=== PATIENT | male | born 1995 | race Caucasian/White ===

== ENCOUNTER 2016-11-03 14:07 | Emergency (ER) | payer OTHER ==
[2016-11-03 14:18] VITALS: RESP 18
--- NOTE | 2016-11-03 14:46 | ED ---
General Adult HPI - General Chief complaint: Upper Respiratory Infection Stated complaint: Sore throat Time Seen by Provider: 11/03/16 14:22 Source: patient, RN notes reviewed Mode of arrival: ambulatory Limitations: no limitations - History of Present Illness Initial comments: This is a 21-year-old male presents with productive cough, fever, congestion and headache plus a sore throat 4 days. Patient states it all started with a fever for 4 days and he developed congestion, headache and sore throat. Patient has been taking Tylenol and Motrin for the fever. Patient states he did not have a fever today. Patient states he has vomited a couple times but not today. Patient did not get a flu shot. Patient admits to smoking marijuana but denies tobacco, alcohol and other drug use. Patient denies any recent shortness breath, chest pain, abdominal pain, nausea/diarrhea, back pain , numbness, tingling, hematuria, or visual changes, or any other complaints. - Related Data Allergies Allergy/AdvReac Type Severity Reaction Status Date / Time No Known Allergies Allergy Verified 11/03/16 14:14 Review of Systems ROS Statement: Those systems with pertinent positive or pertinent negative responses have been documented in the HPI. ROS Other: All systems not noted in ROS Statement are negative. Past Medical History Past Medical History: No Reported History History of Any Multi-Drug Resistant Organisms: None Reported Past Surgical History: Appendectomy Past Psychological History: No Psychological Hx Reported Smoking Status: Current every day smoker Past Alcohol Use History: None Reported Past Drug Use History: Marijuana General Exam Limitations: no limitations Course Vital Signs 11/03/16 14:14 Temperature 98.1 F Pulse Rate 79 Respiratory 18 Rate Blood Pressure 156/79 O2 Sat by Pulse 96 Oximetry Medical Decision Making - Medical Decision Making This is a 21-year-old female presents with flulike symptoms 4 days. On physical exam patient from the . Lungs are clear to auscultation bilaterally. Influenza and strep rechecked. Strep is negative and patient is positive for influenza B. Chest x-ray is done and reviewed showing: No acute cardiopulmonary process. Report read by Dr. Davis. I discussed the results with patient. I discussed that patient is out of the window for Tamiflu treatment. I discussed continuation of Tylenol and Motrin for fever. I discussed symptomatic treatment. I discussed return parameters. I discussed with the patient should follow-up with his primary care provider in one to 2 days or return to the [facility] for any worsening symptoms or for any further concerns. Patient was receptive to this plan and patient will be discharged home. - Lab Data Lab Results 11/03/16 11/03/16 Range/Units 14:44 14:44 Influenza Type A RNA Not Detected (Not Detectd) Influenza Type B (PCR) Detected H (Not Detectd) Group A Strep Rapid Negative (Negative) Disposition Clinical Impression: Influenza B Disposition: HOME SELF-CARE Condition: Good Instructions: Influenza (ED), Influenza Vaccine (ED) Additional Instructions: Please continue ttdf-gee-ryiokoc decongestants and Tylenol and Motrin. She'll drink plenty of fluids. Please follow-up with her primary care provider in the next 1-2 days or return to the [facility] for any worsening symptoms or for any further concerns. Time of Disposition: 15:17
--- NOTE | 2016-11-03 15:10 | XR ---
EXAMINATION TYPE: XR chest 2V DATE OF EXAM: 11/03/2016 3:01 PM COMPARISON: NONE HISTORY: Pain TECHNIQUE: Frontal and lateral views of the chest are obtained. FINDINGS: There is no focal air space opacity, pleural effusion, or pneumothorax seen. The cardiac silhouette size is within normal limits. The osseous structures are intact. IMPRESSION: No acute cardiopulmonary process.
[2016-11-03 15:28] VITALS: BP 133/78; PULSE 78; TEMP 98.7
== END 2016-11-03 15:28 | disposition home or self-care (01) ==
LOC: EC 14:07
DX: J10.1 Influenza due to other identified influenza virus with other respiratory manifestations (principal); F12.90 Cannabis use, unspecified, uncomplicated
CPT/HCPCS: 71020; 87081; 87430; 87502; 99283

== ENCOUNTER → 2017-09-02 | Outpatient (CLI) | payer OTHER ==
--- NOTE | 2017-09-02 15:15 | MR ---
EXAMINATION TYPE: MR brain wo con DATE OF EXAM: 09/02/2017 COMPARISON: NONE HISTORY: Acoustic Neuroma, dizziness TECHNIQUE: Multiplanar, multisequence imaging of the brain and brainstem is performed without IV cont rast. FINDINGS: Diffusion weighted images demonstrate no evidence of a recent infarct or other diffusion abnormality. There is no extraaxial fluid collection or significant white matter signal abnormality. The ventricu lar system and cisternal spaces are normal in size and appearance. The brain volume is age appropria te. Midline structures demonstrate normal morphology. The craniocervical junction appears within normal limits. Normal vascular flow voids are present. There is mild to moderate mucosal thickening involvin g ethmoid sinuses bilaterally as well as inferior aspect of both maxillary sinuses. The globes are in tact bilaterally. No suspicious fluid signal seen in mastoid air cells bilaterally. Vestibulocochlear complexes appear grossly unremarkable on T2 axial image 10. IMPRESSION: 1. Chronic paranasal sinus disease as detailed above otherwise fairly unremarkable study. To exclude acoustic neuroma I advise further investigation with contrast-enhanced MRI IAC study which is more se nsitive.
== END | disposition home or self-care (01) ==
LOC: RADMRIMAIN 13:11
PROVIDERS: ATTEND Urology
DX: D33.3 Benign neoplasm of cranial nerves (principal)
CPT/HCPCS: 70551

== ENCOUNTER → 2017-10-05 | Outpatient (CLI) | payer OTHER ==
--- NOTE | 2017-10-06 07:27 | MR ---
EXAMINATION TYPE: MR brain and iac wo/w con DATE OF EXAM: 10/05/2017 COMPARISON: Prior MRI brain September 02, 2017 HISTORY: Dizziness, R/O acoustic neuroma. Asymmetric hearing loss per order. TECHNIQUE: Multiplanar, multisequence images of the brain and brainstem including internal auditory canals are a ll performed without and with IV contrast, utilizing 7.5 mL intravenous Gadavist . FINDINGS: Diffusion weighted images demonstrate no evidence of a recent infarct or other diffusion ab normality. There is no extra-axial fluid collection or significant white matter signal abnormality. The ventricular system and cisternal spaces are normal in size and appearance. The brain volume is age appropriate. Midline structures demonstrate normal morphology. The craniocervical junction appears within normal limits. Post contrast images demonstrate no abnormal enhancement. The dural venous sinuses appear pa tent. The visualized sinuses are clear and the globes are intact. Dedicated IAC imaging shows no suspicious fluid signal level of mastoid air cells bilaterally. Some i ncreased fluid signal level of right petrous apex is noted series 501 and series 801 image 5. Vestibu locochlear complexes are symmetric and felt within normal limits. No suspicious enhancing cerebellopo ntine angle mass is identified bilaterally. IMPRESSION: 1. No worrisome enhancing intraparenchymal mass is identified to suggest acoustic neuroma. Possible r ight-sided petrous apicitis versus retained secretions, correlate clinically.
== END | disposition home or self-care (01) ==
LOC: RADMRIMAIN 15:10
PROVIDERS: ATTEND Urology
DX: D33.3 Benign neoplasm of cranial nerves (principal)
CPT/HCPCS: 70553; A9581

== ENCOUNTER 2018-06-30 14:49 | Emergency (ER) | payer OTHER ==
[2018-06-30 14:54] VITALS: RESP 18; TEMP 98.1
--- NOTE | 2018-06-30 15:17 | ED ---
General Adult HPI - General Chief complaint: Upper Respiratory Infection Stated complaint: Sore Throat Time Seen by Provider: 06/30/18 15:01 Source: patient, RN notes reviewed Limitations: no limitations - History of Present Illness Initial comments: Patient is a 23-year-old male who presents the emergency department with complaints of a sore throat that started yesterday. He reports that he was treated with antibiotics a week ago for presumed strep throat and that he did feel better after completing antibiotics. He reports that he had a temperature of 99F yesterday. Denies fevers today. Also complains of some mild abdominal discomfort and fatigue. Patient denies any recent cough, shortness of breath, runny nose, congestion, chest pain, back pain, nausea or vomiting, constipation or diarrhea, headaches or visual changes, or any other complaints. - Related Data Allergies Allergy/AdvReac Type Severity Reaction Status Date / Time No Known Allergies Allergy Verified 11/03/16 14:14 Review of Systems ROS Statement: Those systems with pertinent positive or pertinent negative responses have been documented in the HPI. ROS Other: All systems not noted in ROS Statement are negative. Past Medical History Past Medical History: No Reported History History of Any Multi-Drug Resistant Organisms: None Reported Past Surgical History: Appendectomy Past Psychological History: No Psychological Hx Reported Smoking Status: Never smoker Past Alcohol Use History: None Reported Past Drug Use History: Marijuana General Exam Limitations: no limitations General appearance: alert, in no apparent distress Head exam: Present: atraumatic, normocephalic Eye exam: Present: normal appearance, PERRL ENT exam: Present: TM's normal bilaterally, normal external ear exam, other ( Tonsils are mildly enlarged. No exudate.) Neck exam: Present: normal inspection, other (No lymphadenopathy.) Respiratory exam: Present: normal lung sounds bilaterally Cardiovascular Exam: Present: regular rate, normal rhythm GI/Abdominal exam: Present: soft (No tenderness to palpation.), normal bowel sounds Neurological exam: Present: alert, oriented X3 Psychiatric exam: Present: normal affect, normal mood Skin exam: Present: warm, dry Course Vital Signs 06/30/18 14:51 Temperature 98.1 F Pulse Rate 81 Respiratory 18 Rate Blood Pressure 126/74 O2 Sat by Pulse 99 Oximetry Medical Decision Making - Medical Decision Making Group A Strep Rapid is negative. Influenza A and B are also negative. Patient likely has a viral infection. No antibiotics are needed at this time. Case discussed in detail with attending physician Dr. Westbrook. - Lab Data Lab Results 06/30/18 06/30/18 Range/Units 15:30 15:30 Influenza Type A RNA Not Detected (Not Detectd) Influenza Type B (PCR) Not Detected (Not Detectd) Group A Strep Rapid Negative (Negative) Disposition Clinical Impression: Viral infection Disposition: HOME SELF-CARE Condition: Good Instructions: Upper Respiratory Infection (ED) Additional Instructions: Follow-up with PCP in 2 days. Return to emergency department if symptoms worsen or any other concerns. Is patient prescribed a controlled substance at d/c from ED?: No Referrals: Anselmo Baez MD [Primary Care Provider] - 1-2 days Time of Disposition: 16:17
[2018-06-30 16:39] VITALS: BP 124/72; PULSE 78
== END 2018-06-30 16:39 | disposition home or self-care (01) ==
LOC: EC 14:49
DX: B34.9 Viral infection, unspecified (principal)
CPT/HCPCS: 87081; 87430; 87502; 99283

== ENCOUNTER 2021-02-11 09:17 | Day surgery (SDC) | payer OTHER ==
[2021-02-07 15:30] VITALS: BMI 26.9
[~2021-02-11 09:17] MED LIST: ACETAMINOPHEN TAB 500 MG TAB PO PRN; DEXAMETHASONE SOD PHOSPHATE 4 MG/ML 1 ML VIAL IV ONE; HEPARIN SODIUM,PORCINE/PF 5,000 UNIT/0.5 ML SYRINGE SQ PRN; HYDROmorphone 0.5 MG/0.5 ML SYRINGE IVP PRN; LACTATED RINGERS 1,000 ML IV SCH; ONDANSETRON 4 MG/2 ML VIAL IVP ONE; metroNIDAZOLE-NS PMX 500 MG in SALINE 1 100ML.BAG IVPB PRN
[2021-02-11] MEDS ORDERED: LACTATED RINGERS 1,000 ML IV ONE (09:41)
--- NOTE | 2021-02-11 11:20 | P.GSHP ---
History of Present Illness H&P Date: 02/11/21 Chief Complaint: Pilonidal cyst Is a 26-year-old male with chronically inflamed pilonidal cyst. Patient presents today for excision. Patient understands we will be packed and will heal with secondary intention. Past Medical History Past Medical History: Skin Disorder Additional Past Medical History / Comment(s): seizures at age 13, chronic sinusitis, migraines, HS-hidradenitis suppurative, tinnitus History of Any Multi-Drug Resistant Organisms: None Reported Past Surgical History: Appendectomy Past Anesthesia/Blood Transfusion Reactions: Motion Sickness Smoking Status: Never smoker - Past Family History Mother Family Medical History: Deep Vein Thrombosis (DVT) Medications and Allergies Home Medications Medication Instructions Recorded Confirmed Type Turmeric Tab(Dose Unknown) 3 - 4 tab PO DAILY 02/07/21 02/07/21 History Allergies Allergy/AdvReac Type Severity Reaction Status Date / Time No Known Allergies Allergy Verified 02/07/21 15:23 Surgical - Exam Vital Signs Temp Pulse Resp BP Pulse Ox 97.7 F 66 18 156/66 97 02/11/21 09:37 02/11/21 09:37 02/11/21 09:37 02/11/21 09:37 02/11/21 09:37 - General well developed, well nourished, no distress - Eyes PERRL - ENT normal pinna - Neck no masses - Respiratory normal expansion - Cardiovascular Rhythm: regular - Abdomen Abdomen: soft, non tender - Integumentary Chronic infected pilonidal cyst Assessment and Plan Plan: Chronically inflamed pilonidal cyst. We'll perform excision.
[2021-02-11] MEDS ORDERED: fentaNYL (PF) 50 MCG/ML 2 ML AMP ONE (11:21)
[2021-02-11] MEDS ORDERED: SUCCINYLCHOLINE CHLORIDE 100 MG/5 ML SYR IV ONE (11:21)
[2021-02-11] MEDS ORDERED: MIDAZOLAM 2 MG/2 ML VIAL ONE (11:21)
[2021-02-11] MEDS ORDERED: LIDOCAINE 1% INJ 10MG/ML (20 ML MDV) ONE (11:21)
[2021-02-11] MEDS ORDERED: PROPOFOL 10 MG/ML 20 ML VIAL IV ONE (11:21)
[2021-02-11] MEDS ORDERED: BUPIVACAINE (PF) 0.25% 30 ML VIAL SQ ONE ×2 (11:55)
--- NOTE | 2021-02-11 12:07 | P.OP ---
Date of Procedure: 02/11/21 Preoperative Diagnosis: Pilonidal cyst Postoperative Diagnosis: Chronically inflamed pilonidal cyst Procedure(s) Performed: Abdominal cystectomy Anesthesia: JEAN CLAUDE Surgeon: Damián Guerrero Estimated Blood Loss (ml): 5 Pathology: other (Pilonidal cyst) Condition: stable Disposition: PACU Description of Procedure: Patient's placed on the operative table in the supine position. He received juncture tube anesthesia. He was then placed the probes. His pollinosis was prepped and draped usual sterile fashion. The areas rectal 1% local Xylocaine. Using a 15 blade the skin was incised. Trochars used for hemostasis. The subcutaneous tissues were divided with cautery. Specimens of pathology. The wound was packed with Kerlix. Patient tolerated the procedure well was sent to recovery in stable condition.
[2021-02-11 12:17] VITALS: TEMP 97.6
[2021-02-11] MEDS ORDERED: ONDANSETRON 4 MG/2 ML VIAL IVP ONE (12:18)
[2021-02-11 12:39] VITALS: RESP 16
[2021-02-11 13:42] VITALS: BP 121/76; PULSE 56
== END 2021-02-11 13:56 | disposition home or self-care (01) ==
LOC: OR 09:17
PROVIDERS: ATTEND Surgery
DX: L05.01 Pilonidal cyst with abscess (principal); L73.2 Hidradenitis suppurativa; H93.19 Tinnitus, unspecified ear; J32.9 Chronic sinusitis, unspecified; Z90.89 Acquired absence of other organs
CPT/HCPCS: 88304; 11770; J2250; J1100; J0690; J2405; J2001; J3010; J0330; J2704; J1170; J1644